=== PATIENT | female | born 1970 | race Caucasian/White ===

== ENCOUNTER → 2021-10-30 11:18 | Outpatient (CLI) | payer OTHER, SELFPAY ==
--- NOTE | ~2021-10-30 | US_ITS ---
EXAMINATION: US transvaginal DATE: 10/30/2021 11:42 INDICATION: Abdominal bloating TECHNIQUE: Multiple endovaginal sonographic images of the pelvis were obtained. COMPARISON: None. FINDINGS: The uterus measures 9.9 x 5.4 x 3.9 cm. There is an approximately 7.8 x 7.5 x 7.7 cm isoech oic mass in the left uterine body which has the appearance of an intramural fibroid. The endometrial complex measures 9 mm. The ovaries are not visualized however no adnexal abnormality is seen. There i s no free fluid in the pelvis. IMPRESSION: 1. No sonographic correlate for the patient's symptoms. 2. Uterine fibroid. Reviewed, dictated and finalized at location F. MOBILE DRIVER
== END ==
PROVIDERS: PCP Family Medicine; Visit Provider Obstetrics & Gynecology
DX: R14.0 Abdominal distension (gaseous) (principal); D25.9 Leiomyoma of uterus, unspecified
CPT/HCPCS: 76830

== ENCOUNTER 2022-04-18 18:20 | Emergency (ER) | payer OTHER, SELFPAY ==
[2022-04-18 18:41] VITALS: BP 126/76; PULSE 82; RESP 16; TEMP 36.7; O2SAT 100
[2022-04-18 18:45] VITALS: BP 126/76; PULSE 82; RESP 16; TEMP 36.6; O2SAT 100
--- NOTE | 2022-04-18 19:19 | ED.GENADULT ---
HPI - General Adult General Chief complaint: Skin/Abscess/Foreign Body Stated complaint: Rash Source: patient Mode of arrival: ambulatory Limitations: no limitations History of Present Illness HPI narrative: Patient presents for evaluation of pruritic rash to the face, neck, abdomen since Wednesday of this week. She indicates she was working outdoors and was likely exposed to poison sonia. She has had similar reactions to poison sonia in the past. No new lotions, soaps, detergents, topical products. In the past she has responded well to oral steroids. Benadryl and calamine have also helped in past. No additional complaints or concerns. Related Data Home Medications Medication Instructions Recorded Confirmed metformin 1,000 mg tablet 1,000 mg PO BID 01/24/20 04/18/22 sertraline 100 mg tablet 100 mg PO DAILY 01/24/20 04/18/22 lisdexamfetamine 70 mg capsule 70 mg PO DAILY 04/18/22 04/18/22 (Vyvanse) Allergies Allergy/AdvReac Type Severity Reaction Status Date / Time codeine Allergy Unknown Difficulty Verified 04/18/22 18:36 Breathing oxycodone Allergy Unknown Difficulty Verified 04/18/22 18:36 Breathing Review of Systems Review of Systems: CONSTITUTIONAL: Denies fever, chills, or sweats. EYES: Denies visual changes, redness, or discharge. ENT: Denies rhinorrhea, congestion, sore throat, or otalgia. CARDIOVASCULAR: Denies chest pain, palpitations, or edema. RESPIRATORY: Denies cough or dyspnea. GASTROINTESTINAL: Denies abdominal pain, nausea, vomiting, or diarrhea. GENITOURINARY: Denies dysuria or hematuria. SKIN: Reports pruritic rash to face neck and abdomen MUSCULOSKELETAL: Denies back pain, joint pain, or myalgia. NEUROLOGIC: Denies headache, numbness, dizziness, or weakness. PSYCHIATRIC: Denies anxiety or depression. [facility] Past Medical History Medical History Depression Essential (primary) hypertension Fatigue Gastroesophageal reflux disease without esophagitis Iron deficiency Iron deficiency anemia Low back pain without sciatica PCOS (polycystic ovarian syndrome) Type 2 diabetes mellitus without complication, without long-term current use of insulin Vitamin B12 deficiency Surgical History Surgical History H/O gastric bypass Personal history of gastric bypass Family History Family History Mother Depression Hypertension Father Family history of malignant neoplasm Social History Social History Second hand tobacco smoke exposure: No Alcohol intake: never Substance use: never Living arrangements: with family Gender identity (if verbalized by the patient): Female Sexual Orientation (if Verbalized by the Patient): Straight or Heterosexual Spiritual care concerns: No Agree to blood products: Yes Exam Narrative: GENERAL: Well-appearing, well-nourished, and in no acute distress. HEAD: Normocephalic, atraumatic. EYES: PERRLA and EOMI. ENT: Nares clear, no rhinorrhea or epistaxis. Mucous membranes moist. Oropharynx without tonsillar hypertrophy exudate or other lesions. Bilateral TMs pearly agarwal nonbulging NECK: Supple. No adenopathy or masses. No carotid bruits or JVD CHEST: Clear to auscultation. No respiratory distress. No wheezes rales or rhonchi HEART: Regular rate and rhythm. No murmur heard. Normal peripheral pulses. ABDOMEN: Soft, nontender, nondistended, normal active bowel sounds. EXTREMITIES: Normal range of motion. No edema. SKIN: There is an erythematous rash to the face, and anterolateral last of the neck, and circumferentially to the abdomen in a patchy distribution. There are some erythematous vesicles noted in webbing of her hands NEURO: No focal deficits. Alert and oriented x3. PSYCH: Normal mood and affect. Course
== END 2022-04-18 19:24 | disposition home or self-care (01) ==
PROVIDERS: Emergency Provider Nurse Practitioner; PCP Family Medicine
DX: L23.7 Allergic contact dermatitis due to plants, except food (principal); I10 Essential (primary) hypertension; K21.9 Gastro-esophageal reflux disease without esophagitis; E28.2 Polycystic ovarian syndrome; E11.9 Type 2 diabetes mellitus without complications; F32.A Depression, unspecified; Z79.84 Long term (current) use of oral hypoglycemic drugs
CPT/HCPCS: 99213; G0463

== ENCOUNTER 2022-10-21 00:03 | Day surgery (SDC) | payer OTHER, SELFPAY ==
[2022-10-06 15:11] VITALS: BMI 31.4
[2022-10-21 06:20] VITALS: BP 115/71; PULSE 83; RESP 18; TEMP 36.5; O2SAT 97
[2022-10-21] MEDS: LACTATED RINGERS 1,000 ML 150 ML IV CONT (06:32)
[2022-10-21 06:41] LABS: Glucose Point of Care 95 mg/dl (65-105)
--- NOTE | 2022-10-21 07:22 | PM.HPGS ---
History of Present Illness History of Present Illness Consent: Risks, benefits, and alternatives have been discussed and questions answered. Patient agrees to proceed with procedure. Chief complaint: fam hx of colon cancer Narrative: Ada Pittman is a 51 year old female here for first screening colonoscopy Review of Systems Constitutional: Constitutional: Denies headache(s) and Denies weakness Eyes: Eyes: Denies blurry vision ENT: Reports Normal hearing present, Denies headache(s) and Denies neck pain Cardiovascular: Cardiovascular: Denies chest pain and Denies dyspnea Respiratory: Respiratory: Denies dyspnea Gastrointestinal: Gastrointestinal: Reports no additional gastrointestinal complaints Genitourinary: Genitourinary: Denies dysuria Musculoskeletal: Musculoskeletal: Denies neck pain Integumentary/Breasts: Skin/Breast: Denies dry skin Neurologic: Reports Normal hearing present, Denies headache(s) and Denies weakness Psychiatric: Psychiatric: Denies anxiety Endocrine: Endocrine: Denies change in body appearance Hematologic/Lymphatic: Hematologic/Lymphatic: Denies easy bleeding Allergic/Immunologic: Allergic/Immunologic: Denies urticaria PMFSH Past Medical History Medical History (Updated 10/21/22 @ 07:22 by Herberth Post MD) Colon cancer screening Depression Essential (primary) hypertension Fatigue Gastroesophageal reflux disease without esophagitis Iron deficiency Iron deficiency anemia Low back pain without sciatica PCOS (polycystic ovarian syndrome) Type 2 diabetes mellitus without complication, without long-term current use of insulin Vitamin B12 deficiency Surgical History Surgical History H/O gastric bypass Personal history of gastric bypass Family History Family History Mother Depression Hypertension Father Family history of malignant neoplasm Social History Social History Smoking status: Never smoker Second hand tobacco smoke exposure: No Alcohol intake: current Substance use: never Substance use type: does not use Living arrangements: with family Gender identity (if verbalized by the patient): Female Sexual Orientation (if Verbalized by the Patient): Straight or Heterosexual Spiritual care concerns: No Agree to blood products: Yes Meds Home Medications and Allergies Home Medications Medication Instructions Recorded Confirmed Type metformin 1,000 mg tablet 1,000 mg PO BID 01/24/20 10/06/22 History sertraline 100 mg tablet 100 mg PO DAILY 01/24/20 10/21/22 History nifedipine 90 mg tablet,extended 90 mg PO DAILY #90 tabs 04/15/22 10/06/22 Rx release 24 hr (Procardia XL) lisdexamfetamine 70 mg capsule 70 mg PO DAILY 04/18/22 10/06/22 History (Vyvanse) labetalol 100 mg tablet 100 mg PO Q12H #180 tabs 10/01/22 10/21/22 Rx Allergies Allergy/AdvReac Type Severity Reaction Status Date / Time codeine Allergy Unknown Difficulty Verified 10/21/22 06:18 Breathing oxycodone Allergy Unknown Difficulty Verified 10/21/22 06:18 Breathing Vital Signs Vital Signs - 24 hr 10/21/22 06:20 Temperature 97.7 F Pulse Rate 83 Respiratory Rate 18 Blood Pressure 115/71 Pulse Oximetry 97 Oxygen Delivery Room Air Exam Const: General: comfortable and no acute distress HENMT: Face/Nose/Sinus: Normal nares present Eyes: General: appearance normal, both eyes and all related structures Neck: Neck: no JVD Resp: Auscultation: clear to auscultation bilaterally Cardio: Rate: regular rate Rhythm: regular rhythm GI: Inspection: non-distended GI Palp: Yes Soft to palpation Skin: General skin exam: normal color Neuro: General: gait normal Speech: normal speech Extrem: General: normal to inspection Psych: Mental Status: ment
--- NOTE | 2022-10-21 07:23 | WPDANESEPPF ---
Anes - Initial Pre Proc Eval Procedure: Operation Date: 10/21/22 07:30 Proposed Procedures p Screening Colonoscopy - Herberth Post MD Date/Time: 10/21/22 07:23 Surgeon: Herberth Post MD Pre Op Diagnosis: fam hx of colon cancer Patient Data Age: 51 Gender: F Height: 1.7 m Weight: 86.7 kg Last Vital Signs Temp 97.7 F 10/21/22 06:20 Pulse 83 10/21/22 06:20 Resp 18 10/21/22 06:20 BP 115/71 10/21/22 06:20 Pulse Ox 97 10/21/22 06:20 O2 Del Method Room Air 10/21/22 06:20 Allergies Allergy/AdvReac Type Severity Reaction Status Date / Time codeine Allergy Unknown Difficulty Verified 10/21/22 06:18 Breathing oxycodone Allergy Unknown Difficulty Verified 10/21/22 06:18 Breathing Home Medications Medication Instructions Recorded Confirmed Type metformin 1,000 mg tablet 1,000 mg PO BID 01/24/20 10/06/22 History sertraline 100 mg tablet 100 mg PO DAILY 01/24/20 10/21/22 History nifedipine 90 mg tablet,extended 90 mg PO DAILY #90 tabs 04/15/22 10/06/22 Rx release 24 hr (Procardia XL) lisdexamfetamine 70 mg capsule 70 mg PO DAILY 04/18/22 10/06/22 History (Vyvanse) labetalol 100 mg tablet 100 mg PO Q12H #180 tabs 10/01/22 10/21/22 Rx Laboratory Tests 10/21/22 06:37 POC Capillary Glucose 95 mg/dl mg/dl (65-105) Patient hx anesthesia problems: none Family hx anesthesia problems: none Results Review: All pre-operative results and documents have been reviewed as part of the pre-operative evaluation. [facility] Past Medical History Medical History (Updated 10/21/22 @ 07:22 by Herberth Post MD) Colon cancer screening Depression Essential (primary) hypertension Fatigue Gastroesophageal reflux disease without esophagitis Iron deficiency Iron deficiency anemia Low back pain without sciatica PCOS (polycystic ovarian syndrome) Type 2 diabetes mellitus without complication, without long-term current use of insulin Vitamin B12 deficiency Surgical History Surgical History H/O gastric bypass Personal history of gastric bypass Family History Family History Mother Depression Hypertension Father Family history of malignant neoplasm Social History Social History Smoking status: Never smoker Second hand tobacco smoke exposure: No Alcohol intake: current Substance use: never Substance use type: does not use Living arrangements: with family Gender identity (if verbalized by the patient): Female Sexual Orientation (if Verbalized by the Patient): Straight or Heterosexual Spiritual care concerns: No Agree to blood products: Yes Anes - Eval Final PreProcedure Day of Procedure 10/21/22 07:23 Patient weight: obese Heart: regular rate and rhythm Lungs: clear to auscultation Airway: Mallampati scale class II Neurological: alert and oriented Last oral intake: >/= 8 hours ASA classification: III Emergent: no Anesthetic plan: proceed Anesthesia type and monitoring: general GIVS and standard monitoring Results Review: All pre-operative results and documents have been reviewed as part of the pre-operative evaluation. Informed Consent: The patient's anesthetic plan and its attendant risks and benefits were discussed with the patient/family/POA. Questions were solicited and answers provided to the satisfaction of the patient/family/POA.
[2022-10-21 07:55] VITALS: BP 102/64; PULSE 73; RESP 18; TEMP 36.5; O2SAT 97
[2022-10-21 08:05] VITALS: BP 111/65; PULSE 75; RESP 18; TEMP 36.5; O2SAT 100
[2022-10-21 08:15] VITALS: BP 108/71; PULSE 63; RESP 17; TEMP 36.5; O2SAT 100
[2022-10-21 08:20] VITALS: BP 99/63; PULSE 71; RESP 20; TEMP 36.5; O2SAT 100
== END 2022-10-21 08:24 | disposition home or self-care (01) ==
PROVIDERS: PCP Family Medicine; Visit Provider Internal Medicine Gastroenterology
PROC: 0DJD8ZZ Inspection of Lower Intestinal Tract, Via Natural or Artificial Opening Endoscopic (ICD-10-PCS; CPT 45378; principal; 2022-10-21 07:30)
DX: Z12.11 Encounter for screening for malignant neoplasm of colon (principal); Z80.0 Family history of malignant neoplasm of digestive organs; I10 Essential (primary) hypertension; E11.9 Type 2 diabetes mellitus without complications; F32.A Depression, unspecified; Z98.84 Bariatric surgery status; E66.9 Obesity, unspecified; Z68.29 Body mass index [BMI] 29.0-29.9, adult; Z79.84 Long term (current) use of oral hypoglycemic drugs
CPT/HCPCS: 45378; 82948; J2704; J7120

== ENCOUNTER 2024-05-04 09:42 | Outpatient (CLI) | payer OTHER, SELFPAY ==
--- NOTE | ~2024-05-04 | US_ITS ---
EXAMINATION: US renal BI DATE: 05/04/2024 09:59 INDICATION: N28.9 - Disorder of kidney and ureter, unspecified TECHNIQUE: Multiple grayscale and Doppler ultrasound images of the kidneys were obtained. COMPARISON: None. FINDINGS: The right kidney measures 8.9 x 5.3 x 4.6 cm. The left kidney measures 9.8 x 5.9 x 4.4 cm. The kidney s demonstrate normal parenchymal echogenicity. 9 mm simple left upper pole cyst. There is no hydronep hrosis. The bladder is incompletely distended and therefore not well evaluated. IMPRESSION: Unremarkable renal sonogram findings. Limited evaluation of the bladder. Reviewed, dictated and finalized at location K.
== END 2024-05-04 09:43 ==
PROVIDERS: PCP Family Medicine; Visit Provider Student in an Organized Health Care Education/Training Program
DX: N28.9 Disorder of kidney and ureter, unspecified (principal)
CPT/HCPCS: 76775

== ENCOUNTER 2024-05-04 10:28 | Outpatient (CLI) | payer OTHER, SELFPAY ==
[2024-05-04 11:56] LABS: Appearance Urine Clear (Clear); Bilirubin Urine Negative (Negative); Blood Urine Negative (Negative); Color Urine Yellow (Yellow); Glucose Urine UA Negative (Negative); Ketones Urine Negative (Negative); Leukocyte Esterase Ur Negative LEU/UL (Negative); Nitrate Urine Negative (Negative); Protein Urine Negative (Negative); Specific Grav Ur 1.014 (1.001-1.035); Urobilinogen Urine 0.2 mg/dL (<2.0)
[2024-05-04 11:57] LABS: Add Urine Microscopic? NO
== END 2024-05-04 10:29 | disposition home or self-care (01) ==
LOC: ANHLAB 10:29
PROVIDERS: PCP Family Medicine; Visit Provider Student in an Organized Health Care Education/Training Program
DX: N28.9 Disorder of kidney and ureter, unspecified (principal)
CPT/HCPCS: 81003

== ENCOUNTER 2025-08-29 12:54 | Outpatient (CLI) | payer OTHER, SELFPAY ==
--- NOTE | ~2025-08-29 | US_ITS ---
LEFT LOWER EXTREMITY VENOUS DUPLEX Clinical History: Swelling of left lower extremity COMPARISON: None TECHNIQUE: Grayscale, color, duplex/spectral Doppler sonography left leg FINDINGS: Left leg common femoral, femoral, popliteal, and calf veins compressible and color Doppler patent. Normal augmentation with distal compression. No internal echoes. IMPRESSION: 1. No left leg DVT. Reviewed, dictated and finalized at location R. [employer] COMPUTING DIRECTOR IMPRESSION: 1. No left leg DVT.
== END 2025-08-29 12:55 | disposition home or self-care (01) ==
LOC: MICIMG 12:56
DX: M79.89 Other specified soft tissue disorders (principal)
CPT/HCPCS: 93971